=== PATIENT | male | born 1940 | race Hispanic/Latino ===

== ENCOUNTER 2018-10-17 02:44 | Inpatient (IN) | payer OTHER ==
[2018-10-17] VITALS (22 sets, daily range): BP systolic 90–159; BP diastolic 51–92
[~2018-10-17] VITALS: Ht 180.3 cm; Wt 92.6 kg
[2018-10-17] MEDS ORDERED: DIPHENHYDRAMINE HCL INJ 50 MG/ML VIAL ONE (02:51)
[2018-10-17] MEDS ORDERED: FAMOTIDINE 20 MG/2 ML VIAL IV ONE (02:51)
[2018-10-17] MEDS ORDERED: METHYLPREDNISOLONE SOD SUCC 125 MG/2ML VIAL ONE (02:51)
[2018-10-17] MEDS ORDERED: KETAMINE HCL INJ 50 MG/ML 10 ML VIAL ONE (03:04)
[2018-10-17] MEDS ORDERED: MIDAZOLAM HCL 2 MG/2 ML VIAL ONE (03:05)
[2018-10-17] MEDS ORDERED: KETAMINE HCL INJ 50 MG/ML 10 ML VIAL IV ONE (03:11)
[2018-10-17] MEDS ORDERED: SUCCINYLCHOLINE 200 MG/10 ML SYR IV STA ×2 (03:12→03:21)
[2018-10-17] MEDS ORDERED: ETOMIDATE 2 MG/ML 10 ML INJ IV STA ×2 (03:12→03:21)
[2018-10-17] MEDS: PROPOFOL IV EMULSION 10MG/ML 100 ML IV PRN ×11 (03:20→23:30)
[2018-10-17] MEDS ORDERED: MIDAZOLAM HCL 2 MG/2 ML VIAL IV STA (03:21)
[2018-10-17] MEDS ORDERED: SODIUM CHLORIDE 0.9% 1000ML 1,000 ML IV STA (03:22)
[2018-10-17] MEDS ORDERED: PROPOFOL IV EMULSION 10MG/ML 100 ML ONE (03:23)
[2018-10-17] MEDS ORDERED: AMPICILLIN SOD/SULBACTAM 3GM 100 ML IV SCH (03:30)
[2018-10-17] MEDS ORDERED: CEFEPIME 1GM/NS 0.9% 50 ML 50 ML IV SCH (03:30)
[2018-10-17] MEDS ORDERED: VANCOMYCIN 1GM/NS 250 ML 250 ML IV SCH (03:30)
[2018-10-17 03:54] LABS: BASOPHILS # (AUTO) 0.1 (0.0-0.1); BASOPHILS % 0.6 % (0.0-1.0); EOSINOPHILS # (AUTO) 0.3 (0.0-0.4); EOSINOPHILS % 3.1 % (0.0-6.0); HEMATOCRIT 35.9 % (38.2-49.6); HEMOGLOBIN 12.1 g/dL (14.0-18.0); LYMPHOCYTES # (AUTO) 1.6 (1.0-3.2); LYMPHOCYTES % 19.2 % (18.0-39.1); MEAN CORPUSCULAR HEMOGLOBIN 30.3 pg (28-32); MEAN CORPUSCULAR HGB CONC 33.7 g/dL (31-35); MONOCYTES # (AUTO) 0.4 (0.2-0.8); MONOCYTES % 4.6 % (4.4-11.3); NEUTROPHILS # (AUTO) 6.1 (2.1-6.9); NEUTROPHILS % 71.6 % (38.7-80.0); PLATELET COUNT 399 x10e3/uL (140-360); RED BLOOD COUNT 3.99 x10e6/uL (4.3-5.7); RED CELL DISTRIBUTION WIDTH 13.4 % (11.7-14.4)
[2018-10-17 04:05] LABS: ALANINE AMINOTRANSFERASE 39 IU/L (0-55); ALBUMIN 3.1 g/dL (3.5-5.0); ALBUMIN/GLOBULIN RATIO 0.7 (0.8-2.0); ALKALINE PHOSPHATASE 166 IU/L (40-150); ANION GAP 16.6 mmol/L (8-16); BLOOD UREA NITROGEN 16 mg/dL (7-26); BUN/CREATININE RATIO 13 (6-25); CALCIUM 9.1 mg/dL (8.4-10.2); CARBON DIOXIDE 20 mmol/L (22-29); CHLORIDE 104 mmol/L (98-107); CREATININE, SERUM 1.26 mg/dL (0.72-1.25); EST GLOMERULAR FILTRATION RATE 56 ML/MIN (60-); GLUCOSE 153 mg/dL (74-118); POTASSIUM 4.6 mmol/L (3.5-5.1); SODIUM 136 mmol/L (136-145)
[2018-10-17] MEDS ORDERED: PROPOFOL IV EMULSION 10 MG/ML 50 ML VIAL IV PRN (04:15)
[2018-10-17 04:19] LABS: ABG PCO2 42 mmHg (41-51); ABG PH 7.41 (7.31-7.41)
[2018-10-17 04:20] LABS: ABG HCO3 26 mmol/L (23-28); ABG PO2 423 mmHg (80-105)
--- NOTE | 2018-10-17 04:24 | Diagnostic Imaging Report ---
EXAMINATION: CHEST SINGLE (PORTABLE) INDICATION: ^ERMD ORDER ^[id number] ^[id number] ^Y COMPARISON: None FINDINGS: AP view TUBES and LINES: Status post intubation. The tip of endotracheal tube is approximately 3 cm above cuba. LUNGS: Low lung volumes. Central vascular congestion. PLEURA: No visible pneumothorax. Suspected small bilateral pleural effusions. HEART AND MEDIASTINUM: The cardiomediastinal silhouette is enlarged on this AP view. BONES AND SOFT TISSUES: No acute osseous lesion. Soft tissues are unremarkable. UPPER ABDOMEN: No free air under the diaphragm. IMPRESSION: Status post intubation with tip of the endotracheal tube approximately 3 cm above cuba. Limited by body habitus and low lung volumes. Enlarged cardiomediastinal silhouette and pulmonary vascular congestion, accentuated by low lung volumes. Suspected small bilateral pleural effusions. Signed by: Dr. Germán Cam MD on 10/17/2018 4:21 AM
[2018-10-17] MEDS ORDERED: SODIUM CHLORIDE 0.9% 50ML 50 ML ONE (04:26)
[2018-10-17] MEDS ORDERED: IOPAMIDOL 370 MG/ML 200 ML INFUS..BTL INJ ONE (04:26)
[2018-10-17] MEDS ORDERED: MACRODANTIN100 MG PO (04:43)
[2018-10-17] MEDS ORDERED: NORCO 10-325 T1 EACH PO (04:43)
[2018-10-17] MEDS ORDERED: ASPIR 8181 MG PO (04:43)
[2018-10-17] MEDS ORDERED: GLIMEPIRIDE2 MG PO (04:44)
[2018-10-17] MEDS ORDERED: AMLODIPINE-BEN1 EACH PO (04:44)
--- NOTE | 2018-10-17 05:46 | Diagnostic Imaging Report ---
EXAM: CT Chest WITH contrast 10/17/2018 4:00 AM INDICATION: ^?mass ^[id number] ^[id number] COMPARISON: Same day chest x-ray TECHNIQUE: Chest was scanned utilizing a multidetector helical scanner from the lung apex through the level of the adrenal glands without administration of IV contrast. Coronal and sagittal reformations were obtained. Routine protocol was performed. IV CONTRAST: 100 mL of Isovue-370 COMPLICATIONS: None RADIATION DOSE: Total DLP: 728.29 mGy*cm Estimated effective dose: (DLP x 0.014 x size factor) mSv CTDIvol has been reviewed. It is below the limits set by the Radiation Protocol Committee (RPC). FINDINGS: LINES/ TUBES: Endotracheal tube in place with tip terminating in the mid trachea. LUNGS AND AIRWAYS: Evaluation of the lungs are limited due to respiratory motion. Mild vascular congestion. Atelectasis of the most of the left lower lobe. Right lower lobe subsegmental atelectasis. Airways are normal. PLEURA: The pleural spaces are clear. HEART AND MEDIASTINUM: Subcentimeter right thyroid lobe hypodense nodule. No mediastinal, hilar or axillary lymphadenopathy. The heart is normal in size.. There is no pericardial effusion. Main pulmonary artery measures 3.3 cm, mildly dilated. UPPER ABDOMEN: Well-defined left hepatic lobe hypodensity with internal density greater than simple fluid. BONES: The visualized bony thorax is within normal limits. SOFT TISSUES: Partially imaged right neck base subcutaneous fat stranding/edema. IMPRESSION: Atelectasis of the most of the left lower lobe. Underlying mass cannot be excluded. Well-defined left hepatic lobe hypodensity with internal density greater than simple fluid, likely a complex cyst. This can be confirmed with nonurgent right upper quadrant ultrasound. Signed by: Dr. Germán Cam MD on 10/17/2018 5:43 AM
--- NOTE | 2018-10-17 05:48 | Diagnostic Imaging Report ---
History: Swollen tongue. Comparison studies: None Technique: Axial, coronal and sagittal images from the skull base to the thoracic inlet. Coronal and sagittal images reconstructed from the axial data. Dose modulation, iterative reconstruction, and/or weight based adjustment of the mA/kV was utilized to reduce the radiation dose to as low as reasonably achievable. Intravenous contrast: 100 cc of Isovue-370. Findings: Upper aerodigestive tract: Endotracheal tube in place with tip which terminates in the upper thoracic trachea, proximal to the cuba. Dental fillings and endotracheal tube limit evaluation of the oral tongue/cavity and upper aerodigestive tract. There are nonspecific secretions throughout the nasopharynx, oropharynx and supraglottic airway. There is diffuse nonspecific pharyngeal edema. No rim-enhancing fluid collection/abscess. No definite mass identified within the limits of this exam. Soft tissues: There are reactive changes with ill-defined fluid and fat stranding in the soft tissues adjacent to the right submandibular gland which is mildly enlarged and heterogeneous compatible with nonspecific sialoadenitis. No calcified sialolith identified. Reactive changes and small fluid extend inferiorly to the right submandibular gland to the right carotid space and lateral to the thyroid cartilage. Lymph nodes: A few scattered, nonnecrotic, nonenlarged bilateral suprahyoid jugular chain lymph nodes are nonspecific but may be reactive. Additional nonspecific peritracheal lymph nodes which measure up to 1.4 cm also nonspecific. Vessels: Carotid and vertebral arteries and bilateral internal jugular veins are patent. Mild atherosclerosis at the left carotid bulb without significant stenosis. Right external jugular vein IV cannula in place. Small foci of gas in the left lateral neck presumably related to previous IV access. Thyroid gland: Hypodense 9 mm nodule in the right thyroid lobe. The thyroid gland is otherwise homogeneous and normal in size. Parotid glands: Homogeneous, normal in size. Submandibular glands: Mildly enlarged heterogeneous right submandibular gland as above. Left submandibular gland is homogeneous and normal in size. Orbits: No abnormalities. Paranasal sinuses: Small fluid levels in the maxillary sinuses and right sphenoid sinus may be related to intubation. Temporal bones: No gross abnormalities. Skull base and facial bones: Intact. Included lung apices: Mild nonspecific scarring bilaterally. Cervical spine: Multilevel anterior marginal osteophytes indent the prevertebral soft tissues. Varying degrees of mild to moderate multilevel cervical disc degeneration. The C3, C4 and C5 vertebrae are partially fused. Disc osteophyte complexes from C3 to C7 indent the thecal sac and result in mild canal stenosis. Advanced multilevel facet arthrosis with fused facets at C3-C4 and at C4-C5. Multilevel uncovertebral and facet arthrosis result in multilevel foraminal stenosis (mild left at C2-C3, moderate right and mild left at C3-C4 and at C4-C5, severe right and moderate left at C5-C6 and moderate bilaterally at C6-C7 and at C7-T1. IMPRESSION: 1. Status post intubation with ET tube in adequate position. 2. Nonspecific pharyngeal edema. Pharyngeal secretions and small fluid in the paranasal sinuses presumably related to intubation. No definite mass identified. Repeat neck CT following extubation when clinically appropriate could further evaluate as warranted. 3. Nonspecific right submandibular sialoadenitis with reactive changes in the adjacent regional soft tissues. 4. No abscess or other acute abnormalities. Signed by: Dr. Erik Guerrero M.D. on 10/17/2018 5:45 AM
--- OUTSIDE RECORDS SUMMARY | 2018-10-17 05:57 | XMS REPORT | Clinical Summary ---
Author Author ÁLVARO [facility] Address Unknown Phone Unavailable Care Team Providers Care Wine Blender Name Role Phone Shaq Corado MD PCP Unavailable Allergies Comments Active Allergy Reactions Severity Noted Date Pravastatin Swelling 11/27/2016 Medications End Date Status Medication Sig Dispensed Refills Start Date Active glimepiride (AMARYL) 1 MG Take 1 mg by 0 tablet mouth 2 (two) times daily . Active amLODIPine-benazepril Take 1 0 (LOTREL 5-20) 5-20 mg per capsule by capsule mouth daily. 11/08/2018 Active aspirin 325 MG EC tablet Take 1 tablet 30 tablet 0 (325 mg 9 total) by mouth daily for 30 days. 11/07/2018 Active HYDROcodone-acetaminophen Take 1 tablet 120 tablet 0 (NORCO 10-325) 10-325 mg by mouth 9 per tablet every 6 (six) hours as needed for up to 30 days. Max Daily Amount: 4 tablets 10/02/2018 Discontinued amLODIPine (NORVASC) 5 MG Take 5 mg by 0 tablet mouth 2 (two) times daily. 10/02/2018 Discontinued ezetimibe (ZETIA) 10 mg Take 10 mg by 0 tablet mouth daily. 10/02/2018 Discontinued furosemide (LASIX) 20 MG Take 20 mg by 0 tablet mouth 2 (two) times daily . 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 Encounters Care Team Description Date Type Specialty Ale [place], EVANS Follow-up 10/09/2018 Telephone Anesthesiology Erik Esquivel MD MAKOPLASTY,KNEE 10/07/2018 Surgery Frederic Medina MD 10/07/2018 Anesthesia Event Erik Esquivel MD 10/07/2018 [facility] General Internal Medicine - Encounter 10/08/2018 10/07/2018 Travel Resource, [facility] Phone 10/02/2018 Hospital Pre-Admission Testing Encounter Wil Tena PA-C 10/01/2018 Orders Only after 10/16/2017 Social History Date Tobacco Use Types Packs/Day Years Used Never Smoker Smokeless Tobacco: Never Used Alcohol Use Drinks/Week oz/Week Comments Yes socially Sex Assigned at Date Recorded Not on file Industry Job Start Date Occupation Not on file Not on file Not on file Travel End Travel History Travel Start No recent travel history available. Last Filed Vital Signs Time Taken Vital Sign Reading 10/08/2018 11:36 AM CDT Blood Pressure 176/81 10/08/2018 11:36 AM CDT Pulse 98 10/08/2018 11:36 AM CDT Temperature 35.6 C (96 F) 10/08/2018 11:36 AM CDT Respiratory Rate 17 10/08/2018 11:36 AM CDT Oxygen Saturation 98% - Inhaled Oxygen - Concentration 10/07/2018 6:00 AM CDT Weight 92.6 kg (204 lb 2.3 oz) 10/07/2018 6:00 AM CDT Height 180.3 cm (5' 11") 10/07/2018 6:00 AM CDT Body Mass Index 28.47 Plan of Treatment Not on file Implants Device Identifier Shelf Expiration Date Model / Serial / Lot Implanted Type Area Manufactur er 08/13/2018 6194-1-001 / / [id number] Cement Bone Smplx Hv 6194-1-001 - Cement/Nicola Left: Knee DEANNA:ST [id number] ler/Adhesi WIL Implanted: Qty: 1 on 12/11/2016 by Erik Salvador MD 07/16/2026 5841-09-14 / / [id number] Left Medial/Right Lateral Fracture/F Left: Knee Implanted: Qty: 1 on 12/11/2016 by Erik Abreu MD 05/15/202045-1742-413-09 / [id number] Poly Fracture/F Left: Knee Jessy Implanted: Qty: 1 on 12/11/2016 by Erik Abreu MD 05/15/[id number] / / [id number] Plt Tib Hi-Flx Pc Sz-E Lm/Rl Joints Left: Knee JESSY:ZIM [id number] - [id number] OCTAVIO US Implanted: Qty: 1 on 12/11/2016 by Erik Esquivel MD [id number] 05/06/2023 5551-L-350 / / [id number] Patella Triath Asym [id number] - Joints Right: Knee DEANNA:ST [id number] WIL Implanted: Qty: 1 on 10/07/2018 by Erik Joseph MD [id number] 05/29/2023 5510-F-602 / / [id number] Comp Fem Cr Ameya No.6 R 5510-F-602 - Joints Right: Knee DEANNA:ST [id number] WIL Implanted: Qty: 1 on 10/07/2018 by Erik Joseph MD [id number] 06/01/2023 5520-B-600 / / [id number] Baseplt Mica Tib Ameya No.6 5520-B-600 Joints Right: Knee DEANNA:ST - [id number] WIL Implanted: Qty: 1 on 10/07/2018 by Erik Joseph MD [id number] 07/06/2023 5530-G-609 / / [id number] Insrt Tib Bearing 9mm Sz 6 Joints Right: Knee DEANNA:ST 5530-G-609 - [id number] WIL Implanted: Qty: 1 on 10/07/2018 by Erik Joseph MD Procedures Comments Procedure Name Priority Date/Time Associated Diagnosis TRANSFUSION SERVICE 10/08/2018 REPORT - SCAN 6:02 PM CDT POCT-GLUCOSE METER Routine 10/08/2018 1:08 PM CDT POCT-GLUCOSE METER Routine 10/08/2018 7:38 AM CDT HEMOGLOBIN AND HEMATOCRIT Routine 10/08/2018 4:24 AM CDT BASIC METABOLIC PANEL (7) Routine 10/08/2018 4:23 AM CDT POCT-GLUCOSE METER Routine 10/07/2018 10:59 PM CDT POCT-GLUCOSE METER Routine 10/07/2018 9:52 AM CDT TISSUE EXAM AP Routine 10/07/2018 8:25 AM CDT PROCEDURE W/ BRANDY ROBOT 10/07/2018 Primary osteoarthritis of 7:29 AM CDT right knee Special Needs (SPINAL EPIDURAL WITH ADDUCTOR CANAL BLOCK, BRANDY ROBOT)Dr. Esquivel psychopaedic nurse informed of change of order brandy in same room. 10/07 1535 MAKOPLASTY,KNEE 10/07/2018 Primary osteoarthritis of 7:29 AM CDT right knee Special Needs (SPINAL EPIDURAL WITH ADDUCTOR CANAL BLOCK, BRANDY ROBOT)Dr. Esquivel psychopaedic nurse informed of change of order brandy in same room. 10/07 1535 VA AN PERINEURAL CATH - Routine 10/07/2018 NO CHARGE 7:14 AM CDT ANESTHESIA SPINAL BLOCK Routine 10/07/2018 7:09 AM CDT TYPE AND SCREEN, Routine 10/07/2018 AUTOMATED 6:25 AM CDT HEMOGLOBIN Routine 10/07/2018 6:25 AM CDT PLATELET COUNT Routine 10/07/2018 6:25 AM CDT POCT-GLUCOSE METER Routine 10/07/2018 6:23 AM CDT after 10/16/2017 Results * TRANSFUSION SERVICE REPORT - SCAN (10/08/2018 6:02 PM CDT) Narrative Performed At * POC-Glucose meter (10/08/2018 1:08 PM CDT) Only the most recent of 5 results within the time period is included. POC-Glucose Meter 88Comment: TESTED AT [facility] 70 - 110 mg/dL [address] Specimen Blood Performing Organization Address City/[facility]/Zipcode Phone Number [address] [address] [facility] * Hemoglobin and hematocrit (10/08/2018 4:24 AM CDT) Hemoglobin 13.1 (L) 13.7 - 17.5 GM/DL [facility] Hematocrit 40.8 40.1 - 51.0 % [facility] Specimen Blood Performing Organization Address [facility] Phone Number [address] [address] [facility] * Basic Metabolic Panel (10/08/2018 4:23 AM CDT) Sodium 133 (L) 136 - 145 meq/L [facility] Potassium 5.3 (H)Comment: Specimen 3.5 - 5.1 meq/L [facility] slightly hemolyzed [facility] Chloride 106 98 - 107 meq/L [facility] CO2 18 (L) 22 - 29 meq/L [facility] BUN 20 7 - 21 mg/dL [facility] Creatinine 1.26 (H)Comment: Specimen 0.57 - 1.25 mg/dL [facility] slightly hemolyzed [facility] Glucose 91 70 - 105 mg/dL [facility] Calcium 8.7 8.4 - 10.2 mg/dL [facility] EGFR 67Comment: ESTIMATED GFR IS mL/min/1.73 sq m [facility] NOT ACCURATE CREATININE [facility] CLEARANCE IN PREDICTING GLOMERULAR FILTRATION RATE. ESTIMATED GFR IS NOT APPLICABLE FOR DIALYSIS PATIENTS. Specimen Blood Performing Organization Address City/[facility]/Zipcode Phone Number [address] [phone] [facility] * Tissue Exam (10/07/2018 8:25 AM CDT) Case Report Surgical Pathology [facility] Report [facility] Case: [id number] Authorizing Provider:Erik Esquivel,Collected: 10/07/2018 0825 Ordering Location: [facility] Received: 10/07/2018 0915 SERVICES Pathologist: Curt Anderson MD Specimen:Condyle,Right Knee DIAGNOSIS PART A RIGHT KNEE CONDYLE, [facility] ARTHROPLASTY: [facility] OSTEOARTHRITIC CHANGES IN BONE AND CARTILAGE. REACTIVE SYNOVIAL TISSUE. Signing Pathologist Direct Phone Line: [phone] CPT Code(s) 29209, 21679 [facility] CLINICAL HISTORY Primary osteoarthritis of [facility] right knee [facility] SPECIMEN SOURCE Right knee condyle [facility] GROSS DESCRIPTION The specimen is received [facility] without formalin labeled with [facility] patient information and labeled "right knee condyle" and consists of three fragments of cochran knee bone and soft tissue measuring 7.5 x 6 x 2 cm in aggregate. The bone fragments have distinct osteophyte formation with small area of eburnation. Section code: A1 and A2, bone submitted for decalcification; A3, soft tissue and bone submitted for decalcification. CG/pl MICROSCOPIC DESCRIPTION PERFORMED [facility] Specimen Tissue - Condyle,Right Knee Performing Organization Address City/State/Zipcode Phone Number [facility] [address] [place], [place] [phone] [facility] * ANESTHESIA PERIPHERAL BLOCK (10/07/2018 7:14 AM CDT) Narrative Performed At Frederic Medina MD 10/07/20187:15 AM Peripheral Block Patient location during procedure: pre-procedure Start time: 10/07/2018 7:10 AM End time: 10/07/2018 7:12 AM Procedure Indication: procedure for pain, at surgeon's request and post-op pain management Preanesthetic Checklist Completed: patient identified, pre-op evaluation, timeout performed, IV checked, risks and benefits discussed, monitors and equipment checked, anesthesia consent given, prep site dry prior to draping and maximum sterile barriers were used: cap, mask, sterile gown, sterile gloves, and large sterile sheet Staffing Anesthesiologist: Frederic Medina MD Performed: personally Prep Prep: chlorhexidine gluconate and isopropyl alcohol Procedures: sterile gloves, surgical mask, surgical hat, sterile technique and prep and sterile drape applied Peripheral Nerve Block Patient position: supine Patient monitoring: EKG, HR, BP and SpO2 Laterality: right Block type: adductor canal Injection technique: catheter ultrasound guided - in plane, prescan was completed prior to procedure and needle tip was visualized throughout the entire procedure ultrasound image saved (SAVED) Block Dose: ropivicaine and catheter Infiltration strength: 0.5 % Dose: 25 mL Needle Needle type: PAJUNK E CATH. Needle gauge: 18 G Needle length: 75mm. Needle Localization:US guided Catheter type: open end Catheter size: 21G. Hydrodissection? yesCatheter tunneled Dressing: Occlusive dressing applied in sterile fashion and Dermabond applied at the catheter insertion site Assessment Injection assessment: incremental injection and negative aspiration for heme Pain scale pre-procedure: 3 Pain scale post-procedure: 0 LOC: Sedated with meaningful contact supplemental oxygen used.no evidence of intravascular injection and no heart rate changeno paresthesia patient had no immediate complications and patient tolerated the procedure well Procedure Note Frederic Medina MD - 10/07/2018 7:14 AM CDT Peripheral Block Patient location during procedure: pre-procedure Start time: 10/07/2018 7:10 AM End time: 10/07/2018 7:12 AM Procedure Indication: procedure for pain, at surgeon's request and post-op pain management Preanesthetic Checklist Completed: patient identified, pre-op evaluation, timeout performed, IV checked, risks and benefits discussed, monitors and equipment checked, anesthesia consent given, prep site dry prior to draping and maximum sterile barriers were used: cap, mask, sterile gown, sterile gloves, and large sterile sheet Staffing Anesthesiologist: Frederic Medina MD Performed: personally Prep Prep: chlorhexidine gluconate and isopropyl alcohol Procedures: sterile gloves, surgical mask, surgical hat, sterile technique and prep and sterile drape applied Peripheral Nerve Block Patient position: supine Patient monitoring: EKG, HR, BP and SpO2 Laterality: right Block type: adductor canal Injection technique: catheter ultrasound guided - in plane, prescan was completed prior to procedure and needle tip was visualized throughout the entire procedure ultrasound image saved (SAVED) Block Dose: ropivicaine and catheter Infiltration strength: 0.5 % Dose: 25 mL Needle Needle type: LOKESHK Jemima FLOWERS. Needle gauge: 18 G Needle length: 75mm. Needle Localization: US guided Catheter type: open end Catheter size: 21G. Hydrodissection? yesCatheter tunneled Dressing: Occlusive dressing applied in sterile fashion and Dermabond applied at the catheter insertion site Assessment Injection assessment: incremental injection and negative aspiration for heme Pain scale pre-procedure: 3 Pain scale post-procedure: 0 LOC: Sedated with meaningful contact supplemental oxygen used.no evidence of intravascular injection and no heart rate changeno paresthesia patient had no immediate complications and patient tolerated the procedure well * ANESTHESIA SPINAL BLOCK (10/07/2018 7:09 AM CDT) Narrative Performed At Frederic Medina MD 10/07/20187:09 AM Spinal Block Patient location during procedure: pre-procedure Start time: 10/07/2018 7:06 AM End time: 10/07/2018 7:08 AM Procedure Indication: at surgeon's request, post-op pain management and primary anesthetic Staffing Anesthesiologist: Frederic Medina MD Performed: personally Preanesthetic Checklist Completed: patient identified, pre-op evaluation, timeout performed, IV checked, risks and benefits discussed, monitors and equipment checked, anesthesia consent given, prep site dry prior to draping and maximum sterile barriers were used: cap, mask, sterile gown, sterile gloves, and large sterile sheet Prep Prep: Betadine Procedures: sterile gloves, surgical mask, surgical hat, sterile technique and prep and sterile drape applied Spinal Block Patient position: sitting Patient monitoring: EKG, HR, BP and SpO2 Approach: midline Pictures are available Level:L3-4 Injection technique: single-shot landmark technique and landmark technique Needle Needle type: eliseo. Needle gauge: 25 G Needle Length: 9 cm Used introducer Assessment Sensory level: T10 Events: cerebrospinal fluid patient tolerated the procedure well and patient had no immediate complications Procedure Note Frederic Medina MD - 10/07/2018 7:09 AM CDT Spinal Block Patient location during procedure: pre-procedure Start time: 10/07/2018 7:06 AM End time: 10/07/2018 7:08 AM Procedure Indication: at surgeon's request, post-op pain management and primary anesthetic Staffing Anesthesiologist: Frederic Medina MD Performed: personally Preanesthetic Checklist Completed: patient identified, pre-op evaluation, timeout performed, IV checked, risks and benefits discussed, monitors and equipment checked, anesthesia consent given, prep site dry prior to draping and maximum sterile barriers were used: cap, mask, sterile gown, sterile gloves, and large sterile sheet Prep Prep: Betadine Procedures: sterile gloves, surgical mask, surgical hat, sterile technique and prep and sterile drape applied Spinal Block Patient position: sitting Patient monitoring: EKG, HR, BP and SpO2 Approach: midline Pictures are available Level: L3-4 Injection technique: single-shot landmark technique and landmark technique Needle Needle type: eliseo. Needle gauge: 25 G Needle Length: 9 cm Used introducer Assessment Sensory level: T10 Events: cerebrospinal fluid patient tolerated the procedure well and patient had no immediate complications * Type and screen, automated (10/07/2018 6:25 AM CDT) ABO/RH AUTOMATED (BEAKER) B POSITIVE [facility] Ab Scrn NEGATIVE [facility] Specimen Blood Performing Organization Address [facility] [place] [address] [phone] * Platelet count (10/07/2018 6:25 AM CDT) Platelets 332 150 - 450 K/CU MM [facility] Specimen Blood Performing Organization Address City/[facility] Phone Number [address] [address] [phone] [place] [address] * Hemoglobin (10/07/2018 6:25 AM CDT) Hemoglobin 14.8 13.7 - 17.5 GM/DL [facility] Specimen Blood Performing Organization Address [facility] Phone Number [address] [address] [phone] [place] [address] after 10/16/2017 Insurance Payer Benefit Subscriber ID Type Phone Address Plan / Group [employer] xxxxxxxxx Maps HMO ALL Contracted Advance Directives For more information, please contact: [address] [address] Date Inactivated Comments Code Status Date Activated 10/08/2018 8:15 PM Full Code 10/07/2018 5:47 AM This code status was determined by: Patient 12/11/2016 1:27 PM Full Code 12/11/2016 6:54 AM This code status was determined by: Patient
--- OUTSIDE RECORDS SUMMARY | 2018-10-17 05:57 | XMS REPORT ---
Author Author [facility] Address Unknown Phone Unavailable Care Team Providers Care [facility]ess[facility] Paraprofessional Name Role Phone Tez YOO Unavailable Unavailable DAVID KWONG Unavailable Unavailable Problems This patient has no known problems. Allergies, Adverse Reactions, Alerts This patient has no known allergies or adverse reactions. Medications This patient has no known medications. Results Test Description Test Time Test Comments Text Results Atomic Results Result Comments CT CHEST W 2018-10-17 05:32:00 [place] [address] Patient Name: TATI LEAL MR #: [id number] : 1940 Age/Sex: 78/M Req #: [id number] Adm Physician: Ordered by: NOELLE YOO MD Report #: [id number] Location: ER Room/Bed: Procedure: [id number] CT/CT CHEST W Exam Date: 10/17/18 Exam Time: 439 REPORT STATUS: Signed EXAM: CT Chest WITH contrast 10/17/2018 4:00 AM INDICATION: ?mass [id number] COMPARISON: Same day chest x-ray TECHNIQUE: Chest was scanned utilizing a multidetector helical scanner from the lung apex through the level of the adrenal glands without administration of IV contrast. Coronal and sagittal reformations were obtained. Routine protocol was performed. IV CONTRAST: 100 mL of Isovue-370 COMPLICATIONS: None RADIATION DOSE: Total DLP: 728.29 mGy*cm Estimated effective dose: (DLP x 0.014 x size factor) mSv CTDIvol has been reviewed. It is below the limits set by the Radiation Protocol Committee (RPC). FINDINGS: LINES/ TUBES: Endotracheal tube in place with tip terminating in the mid trachea. LUNGS AND AIRWAYS: Evaluation of the lungs are limited due to respiratory motion. Mild vascular congestion. Atelectasis of the most of the left lower lobe. Right lower lobe subsegmental atelectasis. Airways are normal. PLEURA: The pleural spaces are clear. HEART AND MEDIASTINUM: Subcentimeter right thyroid lobe hypodense nodule. No mediastinal, hilar or axillary lymphadenopathy. The heart is normal in size.. There is no pericardial effusion. Main pulmonary artery measures 3.3 cm, mildly dilated. UPPER ABDOMEN: Well-defined left hepatic lobe hypodensity with internal density greater than simple fluid. BONES: The visualized bony thorax is w ithin normal limits. SOFT TISSUES: Partially imaged right neck base subcutaneous fat stranding/edema. IMPRESSION: Atelectasis of the most of the left lower lobe. Underlying mass cannot be excluded. Well-defined left hepatic lobe hypodensity with internal density greater than simple fluid, likely a complex cyst. This can be confirmed with nonurgent right upper quadrant ultrasound. Signed by: Dr. Germán Singh MD on 10/17/2018 5:43 AM Dictated By: GERMÁN SINGH MD 2 Transcribed By: DENTON on 10/17/18542 COPY TO: NOELLE YOO MD CT SOFT TISSUE NECK W 2018-10-17 05:19:00 [place] [address] Patient Name: TATI LEAL MR #: [id number] : 1940 Age/Sex: 78/M Req #: [id number] Adm Physician: Ordered by: NOELLE YOO MD Report #: [id number] Location: ER Room/Bed: Procedure: [id number] CT/CT SOFT TISSUE NECK W Exam Date: 10/17/18 Exam Time: 0440 REPORT STATUS: Signed History: Swollen tongue. Comparison studies: None Technique: Axial, coronal and sagittal images from the skull base to the thoracic inlet. Coronal and sagittal images reconstructed from the axial data. Dose modulation, iterative reconstruction, and/or weight based adjustment of the mA/kV was utilized to reduce the radiation dose to as low as reasonably achievable. Intravenous contrast: 100 cc of Isovue-370. Findings: Upper aerodigestive tract: Endotracheal tube in place with tip which terminates in the upper thoracic trachea, proximal to the cuba. Dental fillings and endotracheal tube limit evaluation of the oral tongue/cavity and upper aerodigestive tract. There are nonspecific secretions throughout the nasopharynx, oropharynx and supraglottic airway. There is diffuse nonspecific pharyngeal edema. No rim-enhancing fluid collection/abscess. No definite mass identified within the limits of this exam. Soft tissues: There are reactive changes with ill-defined fluid and fat stranding in the soft tissues adjacent to the right submandibular gland which is mildly enlarged and heterogeneous compatible with nonspecific sialoadenitis. No calcified sialolith identified. Reactive changes and small fluid extend inferiorly to the right submandibular gland to the right carotid space and lateral to the thyroid cartilage. Lymph nodes: A few scattered, nonnecrotic, nonenlarged bilateral suprahyoid jugular chain lymph nodes are nonspecific but may be reactive. Additional nonspecific peritracheal lymph nodes which measure up to 1.4 cm also nonspecific. Vessels: Carotid and vertebral arteries and bilateral internal jugular veins are patent. Mild atherosclerosis at the left carotid bulb without significant stenosis. Right external jugular vein IV cannula in place. Small foci of gas in the left lateral neck presumably related to previous IV access. Thyroid gland: Hypodense 9 mm nodule in the right thyroid lobe. The thyroid gland is otherwise homogeneous and normal in s ize. Parotid glands: Homogeneous, normal in size. Submandibular glands: Mildly enlarged heterogeneous right submandibular gland as above. Left submandibular gland is homogeneous and normal in size. Orbits: No abnormalities. Paranasal sinuses: Small fluid levels in the maxillary sinuses and right sphenoid sinus may be related to intubation. Temporal bones: No gross abnormalities. Skull base and facial bones: Intact. Included lung apices: Mild nonspecific scarring bilaterally. Cervical spine: Multilevel anterior marginal osteophytes indent the prevertebral soft tissues. Varying degrees of mild to moderate multilevel cervical disc degeneration. The C3, C4 and C5 vertebrae are partially fused. Disc osteophyte complexes from C3 to C7 indent the thecal sac and result in mild canal stenosis. Advanced multilevel facet arthrosis with fused facets at C3-C4 and at C4-C5. Multilevel uncovertebral and facet arthrosis result in multilevel foraminal stenosis (mild left at C2-C3, moderate right and mild left at C3-C4 and at C4-C5, severe right and moderate left at C5-C6 and moderate bilaterally at C6-C7 and at C7-T1. IMPRESSION: 1. Status post intubation with ET tube in adequate position. 2. Nonspecific pharyngeal edema. Pharyngeal secretions and small fluid in the paranasal sinuses presumably related to intubation. No definite mass iden tified. Repeat neck CT following extubation when clinically appropriate could further evaluate as warranted. 3. Nonspecific right submandibular sialoadenitis with reactive changes in the adjacent regional soft tissues. 4. No abscess or other acute abnormalities. Signed by: Dr. Josefa Guerrero M.D. on 10/17/2018 5:45 AM Dictated By: JOSEFA GUERRERO MD Transcribed By: DENTON on 10/17/1845 COPY TO: NOELLE YOO MD CHEST SINGLE (PORTABLE) 2018-10-17 04:18:00 [place] [address] Patient Name: TATI LEAL MR #: [id number] : 1940 Age/Sex: 78/M Req #: [id number] Adm Physician: Ordered by: NOELLE YOO MD Report #: [id number] Location: ER Room/Bed: Procedure: [id number] DX/CHEST SINGLE (PORTABLE) Exam Date: 10/17/18 Exam Time: 324 REPORT STATUS: Signed EXAMINATION: CHEST SINGLE (PORTABLE) IND ICATION: ERMD ORDER [id number] Y COMPARISON: None FINDINGS: AP view TUBES and LINES: Status post intubation. The tip of endotracheal tube is approximately 3 cm above cuba. LUNGS: Low lung volumes. Central vascular congestion. PLEURA: No visible pneumothorax. Suspected small bilateral pleural effusions. HEART AND MEDIASTINUM: The cardiomediastinal silhouette is enlarged on this AP view. BONES AND SOFT TISSUES: No acute osseous lesion. Soft tissues are unremarkable. UPPER ABDOMEN: No free air under the diaphragm. IMPRESSION: Status post intubation with tip of the endotracheal tube approximately 3 cm above cuba. Limited by body habitus and low lung volumes. Enlarged cardiomediastinal silhouette and pulmonary vascular congestion, accentuated by low lung volumes. Suspected small bilateral pleural effusions. Signed by: Dr. Germán Singh MD on 10/17/2018 4:21 AM Dictated By: GERMÁN SINGH MD 0 Transcribed By: DENTON on 10/17/18420 COPY TO: NOELLE YOO MD TISSUE EXAM 2018-10-13 08:44:00 Surgical Pathology Report Case: [id number] Authorizing Provider: Josefa Kwong, Collected: 10/07/2018 0825 Ordering Location: [facility] Received: 10/07/2018 0915 SERVICES Pathologist: Curt Anderson MD Specimen: Condyle,Right Knee PART A RIGHT KNEE CONDYLE, ARTHROPLASTY:OSTEOARTHRITIC CHANGES IN BONE AND CARTILAGE.REACTIVE SYNOVIAL TISSUE. Signing Pathologist Direct Phone Line: [phone] signed by Curt Anderson MD on 10/13/2018 at 8:44 [id number], [id number] osteoarthritis of right kneeRight knee condyleThe specimen is received without formalin labeled with patient information and labeled "right knee condyle" and consists of three fragments of cochran knee bone and soft tissue measuring 7.5 x 6 x 2 cm in aggregate. The bone fragments have distinct osteophyte formation with small area of eburnation. Section code: A1 and A2, bone submitted for decalcification; A3, soft tissue and bone submitted for decalcification. CG/pl PERFORMED POCT-GLUCOSE METER 2018-10-08 13:13:00 POC-GLUCOSE METER (BEAKER) (test eslj=8756) 88 mg/dL 70-110 TESTED AT [facility] [address] [facility] [address] POCT-GLUCOSE [id number] 08:40:00* Test Item Value Reference Range Comments POC-GLUCOSE METER (BEAKER) (test eswa=1333) 100 mg/dL 70-110 TESTED AT [place] [id number] [facility] [address] BASIC METABOLIC [id number] 05:29:00* Test Item Value Reference Range Comments SODIUM (BEAKER) (test nbls=009) 133 meq/L 136-145 POTASSIUM (BEAKER) (test foiu=866) 5.3 meq/L 3.5-5.1 Specimen slightly hemolyzed CHLORIDE (BEAKER) (test sljl=401) 106 meq/L 98-107 CO2 (BEAKER) (test fkow=552) 18 meq/L 22-29 BLOOD UREA NITROGEN (BEAKER) (test ihrt=090) 20 mg/dL 7-21 CREATININE (BEAKER) (test ifby=219) 1.26 mg/dL 0.57-1.25 Specimen slightly hemolyzed GLUCOSE RANDOM (BEAKER) (test gvsg=223) 91 mg/dL 70-105 CALCIUM (BEAKER) (test ojiu=134) 8.7 mg/dL 8.4-10.2 EGFR (BEAKER) (test fdcu=3329) 67 mL/min/1.73 sq m ESTIMATED GFR IS NOT ACCURATE CREATININE CLEARANCE IN PREDICTING GLOMERULAR FILTRATION RATE. ESTIMATED GFR IS NOT APPLICABLE FOR DIALYSIS PATIENTS. HEMOGLOBIN AND [id number] 04:45:00* Test Item Value Reference Range Comments HEMOGLOBIN (BEAKER) (test kqwu=648) 13.1 GM/DL 13.7-17.5 HEMATOCRIT (BEAKER) (test tmud=747) 40.8 % 40.1-51.0 POCT-GLUCOSE [id number] 23:00:00* Test Item Value Reference Range Comments POC-GLUCOSE METER (BEAKER) (test iseq=3984) 136 mg/dL 70-110 TESTED AT [facility] [address] [facility] [address] POCT-GLUCOSE [id number] 09:56:00* Test Item Value Reference Range Comments POC-GLUCOSE METER (BEAKER) (test cpwl=1389) 140 mg/dL 70-110 TESTED AT [place] [id number] [facility] [address] [id number] 06:52:00* Test Item Value Reference Range Comments HEMOGLOBIN (BEAKER) (test zgdy=373) 14.8 GM/DL 13.7-17.5 PLATELET [id number] 06:52:00* Test Item Value Reference Range Comments PLATELET COUNT (BEAKER) (test xmji=559) 332 K/CU MM 150-450 POCT-GLUCOSE [id number] 06:30:00* Test Item Value Reference Range Comments POC-GLUCOSE METER (BEAKER) (test izyt=1647) 118 mg/dL 70-110 TESTED AT [place] [id number] [facility] [address] TISSUE [id number] 20:54:00Surgical Pathology Report Case: [id number] Authorizing Provider: Josefa Kwong, Collected: 12/11/2016 0911 Ordering Location: [facility] Received: 12/11/2016 1010 SERVICES Pathologist: Radha Kamara MD Specimen: Condyle,Left Knee A. KNEE, LEFT CONDYLE, ARTHROPLASTY: - DEGENERATIVE JOINT DISEASE [id number] osteoarthritis left knee Left knee condyle Received fresh labeled "condyle, left knee" are three irregular, howell-white to yellow-cochran portions of osseous tissue to include a portion of the tibial plateau and femoral condyles measuring 10.5 x 8.0 x 1.5 cm in aggregate. The articular surfaces are howell-white to yellow-cochran and display focal areas of eburnation with obliteration of the demarcation between cortical and cancellous bone in these areas on cross section. No soft tissue identified. Boathouse Keeper sections are submitted in cassettes A1-2 for decalcification. DB/ewPerformed.POCT-GLUCOSE [id number] 11:52:00* Test Item Value Reference Range Comments POC-GLUCOSE METER (BEAKER) (test lavh=2481) 100 mg/dL 70-110 TESTED AT [address] [address] POCT-GLUCOSE [id number] 09:05:00* Test Item Value Reference Range Comments POC-GLUCOSE METER (BEAKER) (test jviy=4051) 122 mg/dL 70-110 TESTED AT [address] [address] BASIC METABOLIC [id number] 04:59:00* Test Item Value Reference Range Comments SODIUM (BEAKER) (test pcap=300) 136 meq/L 136-145 POTASSIUM (BEAKER) (test ljpk=327) 4.8 meq/L 3.5-5.1 CHLORIDE (BEAKER) (test yvvz=043) 106 meq/L 98-107 CO2 (BEAKER) (test tnay=182) 21 meq/L 22-29 BLOOD UREA NITROGEN (BEAKER) (test ptex=083) 15 mg/dL 7-21 CREATININE (BEAKER) (test gdkr=573) 1.13 mg/dL 0.57-1.25 GLUCOSE RANDOM (BEAKER) (test txbt=622) 150 mg/dL 70-105 CALCIUM (BEAKER) (test rmur=681) 8.8 mg/dL 8.4-10.2 EGFR (BEAKER) (test qnqz=4660) 77 mL/min/1.73 sq m ESTIMATED GFR IS NOT ACCURATE CREATININE CLEARANCE IN PREDICTING GLOMERULAR FILTRATION RATE. ESTIMATED GFR IS NOT APPLICABLE FOR DIALYSIS PATIENTS. HEMOGLOBIN AND [id number] 04:46:00* Test Item Value Reference Range Comments HEMOGLOBIN (BEAKER) (test qiio=699) 13.4 GM/DL 13.0-16.8 HEMATOCRIT (BEAKER) (test wkls=389) 42.5 % 40.0-50.0 POCT-GLUCOSE [id number] 23:11:00* Test Item Value Reference Range Comments POC-GLUCOSE METER (BEAKER) (test mcxn=8389) 188 mg/dL 70-110 TESTED AT [address] [address] POCT-GLUCOSE [id number] 17:28:00* Test Item Value Reference Range Comments POC-GLUCOSE METER (BEAKER) (test lbtk=0046) 254 mg/dL 70-110 TESTED AT [address] [address] POCT-GLUCOSE [id number] 12:03:00* Test Item Value Reference Range Comments POC-GLUCOSE METER (BEAKER) (test mbed=7364) 181 mg/dL 70-110 TESTED AT [address] [address] POCT-GLUCOSE [id number] 07:18:00* Test Item Value Reference Range Comments POC-GLUCOSE METER (BEAKER) (test qaqk=2849) 160 mg/dL 70-110 TESTED AT [address] [address]
[2018-10-17 07:46] LABS: CREATINE KINASE 71 IU/L (30-200)
[2018-10-17] MEDS: LACTATED RINGER'S 1,000 ML IV SCH ×2 (11:06→20:49)
[2018-10-17] MEDS: INSULIN LISPRO 100 UNIT/1 ML 3ML VIAL SQ SCH ×3 (11:38→18:00)
[2018-10-17] MEDS: METHYLPREDNISOLONE SOD SUCC 125 MG/2ML VIAL IV SCH ×2 (14:00→22:00)
[2018-10-17] MEDS: DIPHENHYDRAMINE HCL INJ 50 MG/ML VIAL IV SCH ×2 (14:00→22:00)
[2018-10-17] MEDS: CLINDAMYCIN 600MG / 50ML 50 ML IV SCH ×2 (14:20→22:00)
[2018-10-17] MEDS ORDERED: FENTANYL CITRATE/PF 100MCG/2 ML INJ IV PRN (15:00)
[2018-10-17] MEDS: FAMOTIDINE 20 MG/2 ML VIAL IV SCH (16:48)
[2018-10-17] MEDS ORDERED: PNEUMOCOCCAL VACCINE POLYVALENT 23 MCG/0.5 ML VIAL IM SCH (19:49)
[2018-10-17] MEDS: ENOXAPARIN 30 MG/0.3 ML SYR SC SCH (20:49)
[2018-10-17] MEDS ORDERED: HEPARIN SOD (PORCINE) 5,000 UNIT/ML VIAL SC SCH ×2 (21:00)
--- NOTE | 2018-10-17 22:44 | Consultation ---
DATE OF CONSULTATION: 10/17/2018 Pulmonary Medicine consult. PRIMARY CARE PHYSICIAN: Shaq Corado MD. HISTORY OF PRESENT ILLNESS: Mr. Solares is a pleasant 78-year-old gentleman with shortness of breath. The patient was having increasing shortness of breath. Onset at 2:30 a.m. acutely. Associated with difficulty swallowing. The patient has an additional tongue swelling. Some submandibular swelling. As there is a pattern of worsening, the patient came to emergency room. The patient had assessment of the ER doctor of possible imminent airway obstruction. The patient had dentures removed. The patient had difficulty securing the airway and he had at least two attempts until airway was secured with the videoscope. He was even deemed difficult even with the videoscope. The patient had emergent CT, which demonstrated paratracheal lymph nodes up to 1.4 cm, right submandibular gland enlargement mild, right submandibular gland area swelling, diffuse nonspecific pharyngeal edema, thyroid being predominantly normal size, right upper lobe mild atelectasis, left lower lobe bronchiectasis on CT lungs portions. The patient was intubated and sent to the ICU and placed on ventilator. PAST MEDICAL HISTORY: Hypertension, diabetes, recent left total knee replacement. MEDICATIONS: Medication list reviewed per the chart record. Include benazepril and Norvasc combination. ALLERGIES: ALLERGIES TO PRAVASTATIN PREVIOUSLY NOTED. SOCIAL HISTORY: No smoking. No drinking. No drugs. The patient lives 80% of the time [place] and 20% of time in [facility]. FAMILY HISTORY: Noncontributory. REVIEW OF SYSTEMS: Cannot get reliably, as he is intubated. PHYSICAL EXAMINATION: VITAL SIGNS: Afebrile, vital signs noted per the chart record. GENERAL: No acute distress on sedation, propofol. HEENT: Normocephalic mostly, although there is some swelling mildly noted to the lip into submandibular right area. Atraumatic. NECK: Supple. Throat midline. LUNGS: Bilateral air entry, limited. CARDIOVASCULAR: S1, S2. No murmurs, rubs, or gallops. ABDOMEN: Soft, nontender. EXTREMITIES: No clubbing, no cyanosis, no edema. INTEGUMENT: No rash or purpura. LABORATORY DATA: 9 white count, 36 hematocrit, 399 platelets. 7.41/42/ . 4.6 potassium, 20 bicarbonate, 16 BUN, 1.3 creatinine. 166 alkaline phosphatase. Albumin is 3.1, globulin is 4.5. Radiography as stated above. IMPRESSION AND PLAN: 1. Upper airways obstruction, evolving. 2. 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 3. Associated mild sialadenitis suspected, rule out evolving infection. 4. Acute respiratory failure, intubated. 5. Diabetes. 6. Hypertension. Mr. Solares' was cautioned probably not to take any of these class of medicines again to include ARBs and SAYRA inhibitors as this is the 2nd occurrence she says of some medicine causing facial edema. ENT consult to be done for evaluation to see if any coexisting or other pathology suspected besides SAYRA inhibitor-induced swelling. For now, no intubation. Continue antibiotics, some steroids and some antihistamines. We will allow ENT doctors to assess they need to rule out other etiologies. Thank you very much for this consult, Dr. Judge and Dr. Corado. Please do not hesitate to contact me if I can help in any way. MD HOLLIE Torres/ASHLEY /[id number]
[2018-10-18] VITALS (27 sets, daily range): BP systolic 112–149; BP diastolic 50–81
[2018-10-18] MEDS: PROPOFOL IV EMULSION 10MG/ML 100 ML IV PRN ×9 (02:00→22:07)
[2018-10-18] MEDS: METHYLPREDNISOLONE SOD SUCC 125 MG/2ML VIAL IV SCH ×3 (05:33→21:42)
[2018-10-18] MEDS: CLINDAMYCIN 600MG / 50ML 50 ML IV SCH ×3 (05:33→21:42)
[2018-10-18] MEDS: DIPHENHYDRAMINE HCL INJ 50 MG/ML VIAL IV SCH ×3 (05:33→21:42)
[2018-10-18 05:51] LABS: BASOPHILS % 0.2 % (0.0-1.0); HEMATOCRIT 31.3 % (38.2-49.6); HEMOGLOBIN 10.3 g/dL (14.0-18.0); LYMPHOCYTES # (AUTO) 0.9 (1.0-3.2); LYMPHOCYTES % 13.2 % (18.0-39.1); MEAN CORPUSCULAR HEMOGLOBIN 29.9 pg (28-32); MEAN CORPUSCULAR HGB CONC 32.9 g/dL (31-35); MONOCYTES # (AUTO) 0.3 (0.2-0.8); MONOCYTES % 3.8 % (4.4-11.3); NEUTROPHILS # (AUTO) 5.4 (2.1-6.9); NEUTROPHILS % 81.9 % (38.7-80.0); PLATELET COUNT 359 x10e3/uL (140-360); RED BLOOD COUNT 3.44 x10e6/uL (4.3-5.7); RED CELL DISTRIBUTION WIDTH 13.8 % (11.7-14.4)
--- NOTE | 2018-10-18 06:19 | Diagnostic Imaging Report ---
EXAMINATION: CHEST SINGLE (PORTABLE) INDICATION: ^pneumonia ^[id number] ^0530 COMPARISON: Chest CT dated 10/17/2018 FINDINGS: AP view TUBES and LINES: Stable endotracheal tube. LUNGS: Lungs are well inflated. Left basilar/retrocardiac opacification. Mild central vascular congestion. PLEURA: No significant pleural effusion or pneumothorax. HEART AND MEDIASTINUM: The cardiac silhouette is borderline enlarged. BONES AND SOFT TISSUES: No acute osseous lesion. Soft tissues are unremarkable. UPPER ABDOMEN: No free air under the diaphragm. IMPRESSION: Central vascular congestion. Left basilar/retrocardiac opacification, probably atelectasis. Underlying pneumonia cannot be excluded in the appropriate clinical context. Signed by: Dr. Germán Cam MD on 10/18/2018 6:16 AM
[2018-10-18 06:23] LABS: ALBUMIN 2.6 g/dL (3.5-5.0); ALBUMIN/GLOBULIN RATIO 0.7 (0.8-2.0); ANION GAP 14.4 mmol/L (8-16); CALCIUM 8.7 mg/dL (8.4-10.2); CREATININE, SERUM 1.28 mg/dL (0.72-1.25); POTASSIUM 4.4 mmol/L (3.5-5.1)
[2018-10-18] MEDS: INSULIN LISPRO 100 UNIT/1 ML 3ML VIAL SQ SCH ×5 (06:27→23:58)
[2018-10-18] MEDS: LACTATED RINGER'S 1,000 ML IV SCH ×2 (06:30→18:15)
[2018-10-18] MEDS: ALBUTEROL/IPRATROPIUM 3 ML NEB NEB PRN (07:31)
[2018-10-18] MEDS: FAMOTIDINE 20 MG/2 ML VIAL IV SCH ×2 (09:17→17:00)
[2018-10-18] MEDS: ENOXAPARIN 30 MG/0.3 ML SYR SC SCH ×2 (09:17→21:01)
[2018-10-18] MEDS ORDERED: DEXMEDETOMIDINE HCL 200 MCG in SODIUM CHLORIDE 0.9% 50ML 48 ML IV PRN ×2 (12:00→22:15)
--- NOTE | 2018-10-18 15:31 | Progress Note ---
DATE: 10/18/2018 Pulmonary Medicine Progress Note SUBJECTIVE: Mr. Solares was seen and examined at bedside. He remains with some swelling. His tongue is not sitting inside his oral cavity and still protrudes outside. He remained intubated on ventilator. Chest x-ray showed interim development of infiltrate. Lactated Ringer's at [address]. REVIEW OF SYSTEMS: No headaches. No bleeding. OBJECTIVE: VITAL SIGNS: Afebrile, vital signs noted per the chart record. GENERAL: In no acute distress. Alert and calm. HEENT: Normocephalic, atraumatic. NECK: Supple. Throat midline. LUNGS: Bilateral air entry, mostly clear. CARDIOVASCULAR: S1, S2. No murmurs, rubs, or gallops. ABDOMEN: Soft and nontender. EXTREMITIES: No clubbing, no cyanosis. There is no edema. INTEGUMENT: No rash or purpura. LABORATORY DATA: A 4.4 potassium, 20 BUN, and 0.3 creatinine. A 7 white count, 31 hematocrit, and 359 platelets. IMPRESSION AND PLAN: 1. Acute respiratory failure, intubated. 2. Clinical aspiration pneumonia, gram-negative/polymicrobial. 3. SAYRA inhibitor related angioedema. 4. Diabetes. 5. Hypertension. The patient had slight awakening on the propofol, probably more than needed. Given fentanyl or Precedex with heart rate cautions. tube feeds another day. Follow up serial airway exams. Lactated Ringer's 100 per hour to continue. We will continue sliding scale insulin. Extubate when the airway is improved. In the meantime, he remained on antibiotics for this pneumonia required prior to hospitalization. MD HOLLIE Torres/MODL /[id number]
--- NOTE | 2018-10-18 16:42 | Consultation ---
DATE OF CONSULTATION: 10/18/2018 Hospital Consultation HISTORY OF PRESENT ILLNESS: I was kindly asked to see this 78-year-old man for evaluation of upper airway obstruction. The patient has a history of periodic lip and tongue swelling, which did not cause significant problems until the day of admission when he developed progressive swelling in his throat, tongue, and submandibular region. He was seen in the emergency department and felt to have an impending upper airway obstruction and was subsequently intubated. CT scan demonstrated right submandibular gland enlargement and swelling in the submandibular region as well as paratracheal lymph nodes up to 1.4 cm. Since admission, the patient initially had a slight increase in amount of swelling of his tongue and submandibular region. However, in the last 12 hours, the swelling has improved significantly. PAST MEDICAL HISTORY: Pertinent for hypertension and diabetes. PAST SURGICAL HISTORY: Pertinent for recent knee surgery. PHYSICAL EXAMINATION: He has a moderate nasal septal deviation to the left. There are no significant nasal mucosal abnormalities. Intraoral examination is limited due to the presence of the endotracheal tube. The tongue is enlarged, but remains within the oral cavity. There is no palpable cervical adenopathy. The right submandibular gland is normal to palpation. On fiberoptic laryngoscopy, he has significant edema of the supraglottic airway. Due to the amount of edema in the vocal cords cannot be directly assessed the endotracheal tube, however, there was space around the endotracheal tube. ASSESSMENT: 1. Upper airway obstruction secondary to angioedema, probably from the SAYRA inhibitor. 2. Right submandibular sialadenitis, which appears to be improving with current therapy. 3. Cervical adenopathy probably secondary to the submandibular sialadenitis. PLAN: Continuation with current medical therapy. MD GUICHO Murray/JERARDOL /[id number]
[2018-10-18] MEDS: DEXMEDETOMIDINE HCL 200 MCG in SODIUM CHLORIDE 0.9% 50ML 48 ML IV PRN (22:07)
[2018-10-19] VITALS (26 sets, daily range): BP systolic 140–176; BP diastolic 64–82
[2018-10-19] MEDS: PROPOFOL IV EMULSION 10MG/ML 100 ML IV PRN ×7 (01:15→21:25)
[2018-10-19 05:07] LABS: BASOPHILS % 0.1 % (0.0-1.0); HEMATOCRIT 33.8 % (38.2-49.6); HEMOGLOBIN 10.8 g/dL (14.0-18.0); LYMPHOCYTES # (AUTO) 0.9 (1.0-3.2); LYMPHOCYTES % 11.7 % (18.0-39.1); MEAN CORPUSCULAR HEMOGLOBIN 29.7 pg (28-32); MEAN CORPUSCULAR VOLUME 92.9 fL (81-99); MONOCYTES # (AUTO) 0.3 (0.2-0.8); MONOCYTES % 4.3 % (4.4-11.3); NEUTROPHILS # (AUTO) 6.2 (2.1-6.9); NEUTROPHILS % 83.2 % (38.7-80.0); PLATELET COUNT 378 x10e3/uL (140-360); RED BLOOD COUNT 3.64 x10e6/uL (4.3-5.7)
[2018-10-19 05:38] LABS: ANION GAP 11.6 mmol/L (8-16); BLOOD UREA NITROGEN 20 mg/dL (7-26); BUN/CREATININE RATIO 18 (6-25); CALCIUM 8.8 mg/dL (8.4-10.2); CARBON DIOXIDE 22 mmol/L (22-29); CHLORIDE 108 mmol/L (98-107); EST GLOMERULAR FILTRATION RATE > 60 ML/MIN (60-); GLUCOSE 167 mg/dL (74-118); POTASSIUM 4.6 mmol/L (3.5-5.1); SODIUM 137 mmol/L (136-145)
[2018-10-19] MEDS: DIPHENHYDRAMINE HCL INJ 50 MG/ML VIAL IV SCH ×3 (05:46→21:21)
[2018-10-19] MEDS: INSULIN LISPRO 100 UNIT/1 ML 3ML VIAL SQ SCH ×4 (05:47→23:45)
[2018-10-19] MEDS: CLINDAMYCIN 600MG / 50ML 50 ML IV SCH ×3 (05:47→21:45)
[2018-10-19] MEDS: METHYLPREDNISOLONE SOD SUCC 125 MG/2ML VIAL IV SCH ×3 (05:47→21:21)
--- NOTE | 2018-10-19 05:49 | Diagnostic Imaging Report ---
EXAMINATION: CHEST SINGLE (PORTABLE) INDICATION: ^intubated ^[id number] ^0505 COMPARISON: 10/18/2018 FINDINGS: AP view TUBES and LINES: Stable endotracheal tube. LUNGS: Limited by body habitus and low lung volumes. Patient's chin obscures extreme apices. Central vascular congestion. Left basilar opacification. PLEURA: No pneumothorax. HEART AND MEDIASTINUM: The cardiac silhouette is enlarged. BONES AND SOFT TISSUES: No acute osseous lesion. Soft tissues are unremarkable. UPPER ABDOMEN: No free air under the diaphragm. IMPRESSION: Limited as above. Pulmonary vascular congestion. Unchanged left basilar opacification, representing small effusion/atelectasis or pneumonia in the appropriate clinical context. Signed by: Dr. Germán Cam MD on 10/19/2018 5:46 AM
[2018-10-19] MEDS: DEXMEDETOMIDINE HCL 200 MCG in SODIUM CHLORIDE 0.9% 50ML 48 ML IV PRN ×2 (06:17→08:19)
[2018-10-19] MEDS: FAMOTIDINE 20 MG/2 ML VIAL IV SCH ×2 (08:18→17:40)
[2018-10-19] MEDS: ENOXAPARIN 30 MG/0.3 ML SYR SC SCH ×2 (08:18→21:21)
[2018-10-19] MEDS: LACTATED RINGER'S 1,000 ML IV SCH ×2 (08:18→21:42)
[2018-10-19] MEDS ORDERED: SUCCINYLCHOLINE 200 MG/10 ML SYR ONE (10:50)
[2018-10-19] MEDS ORDERED: ETOMIDATE 40 MG/ 20ML VIAL IV ONE (10:50)
--- NOTE | 2018-10-19 14:42 | Progress Note ---
DATE: 10/19/2018 Pulmonary Medicine Progress Note SUBJECTIVE: Mr. Solares is having decreased lip edema. Tongue still large, although unclear how much extra edema there is. Rojas is in place with good urine output. He remains on ventilator, intubated orally. Sputum culture with gram-negative rods, moderate amount so far. REVIEW OF SYSTEMS: Cannot get as he is intubated. OBJECTIVE: VITAL SIGNS: Afebrile, vital signs noted per the chart record. GENERAL: In no acute distress, alert and calm on sedation. HEENT: Normocephalic, atraumatic. NECK: Supple. Throat midline. LUNGS: Bilateral air entry, rare rhonchi. CARDIOVASCULAR: S1, S2. No murmurs, rubs, or gallops. ABDOMEN: Soft, nontender. EXTREMITIES: No clubbing. No cyanosis. There is no edema. INTEGUMENT: No rash or purpura. IMPRESSION: 1. Acute respiratory failure, intubated. 2. Angioedema. 3. Associated sialadenitis. 4. Chronic kidney disease. 5. Gram-negative arik pneumonia. PLAN: Continue current treatment at this time. Antibiotics. We will follow up sputum culture. Maintain wound check. His upper airway evaluation with Respiratory Therapy. We will consider if the patient can be extubated today. Otherwise, continue DVT prophylaxis considering recent knee surgery. We will follow along closely. Consider tube feeds if we can extubate. MD HOLLIE Torres/ASHLEY /[id number]
[2018-10-20] VITALS (23 sets, daily range): BP systolic 130–184; BP diastolic 62–90
[2018-10-20] MEDS: PROPOFOL IV EMULSION 10MG/ML 100 ML IV PRN ×2 (04:02→07:54)
[2018-10-20] MEDS: HYDRALAZINE HCL 20 MG/ML VIAL IV PRN (04:23)
[2018-10-20 04:58] LABS: HEMATOCRIT 34.8 % (38.2-49.6); HEMOGLOBIN 11.6 g/dL (14.0-18.0); LYMPHOCYTES # (AUTO) 1.1 (1.0-3.2); LYMPHOCYTES % 13.2 % (18.0-39.1); MEAN CORPUSCULAR HEMOGLOBIN 29.8 pg (28-32); MEAN CORPUSCULAR HGB CONC 33.3 g/dL (31-35); MEAN CORPUSCULAR VOLUME 89.5 fL (81-99); MONOCYTES # (AUTO) 0.4 (0.2-0.8); MONOCYTES % 4.9 % (4.4-11.3); NEUTROPHILS # (AUTO) 6.6 (2.1-6.9); NEUTROPHILS % 81.2 % (38.7-80.0); PLATELET COUNT 423 x10e3/uL (140-360); RED BLOOD COUNT 3.89 x10e6/uL (4.3-5.7)
[2018-10-20] MEDS: INSULIN LISPRO 100 UNIT/1 ML 3ML VIAL SQ SCH ×4 (05:16→23:49)
[2018-10-20] MEDS: DIPHENHYDRAMINE HCL INJ 50 MG/ML VIAL IV SCH ×3 (05:16→21:03)
[2018-10-20] MEDS: CLINDAMYCIN 600MG / 50ML 50 ML IV SCH (05:16)
[2018-10-20 05:31] LABS: ANION GAP 9.2 mmol/L (8-16); BLOOD UREA NITROGEN 23 mg/dL (7-26); BUN/CREATININE RATIO 23 (6-25); CALCIUM 8.7 mg/dL (8.4-10.2); CARBON DIOXIDE 24 mmol/L (22-29); CHLORIDE 107 mmol/L (98-107); CREATININE, SERUM 1.02 mg/dL (0.72-1.25); EST GLOMERULAR FILTRATION RATE > 60 ML/MIN (60-); GLUCOSE 169 mg/dL (74-118); MAGNESIUM 2.4 MG/DL (1.3-2.1); POTASSIUM 4.2 mmol/L (3.5-5.1); SODIUM 136 mmol/L (136-145)
[2018-10-20 05:52] LABS: THYROID STIMULATING HORMONE 0.383 uIU/mL (0.350-4.940)
[2018-10-20] MEDS ORDERED: METHYLPREDNISOLONE SOD SUCC 40 MG/ML VIAL 1ML IV SCH (06:00)
--- NOTE | 2018-10-20 07:03 | Diagnostic Imaging Report ---
Exam: Abdominal film Clinical History: NG tube Comparison: None. DISCUSSION: NG tube placement with the tip right of midline overlying the distal portion of the expected stomach. Nonobstructive bowel gas pattern. IMPRESSION: NG tube as above Signed by: Dr. Valentin Jaramillo M.D. on 10/20/2018 6:59 AM
[2018-10-20] MEDS: FAMOTIDINE 20 MG/2 ML VIAL IV SCH ×2 (08:11→17:20)
[2018-10-20] MEDS: ENOXAPARIN 30 MG/0.3 ML SYR SC SCH ×2 (08:11→20:29)
[2018-10-20] MEDS: AMLODIPINE BESYLATE 5 MG TAB PO SCH (08:11)
[2018-10-20] MEDS: DEXMEDETOMIDINE HCL 200 MCG in SODIUM CHLORIDE 0.9% 50ML 48 ML IV PRN (08:55)
[2018-10-20] MEDS: LACTATED RINGER'S 1,000 ML IV SCH (12:26)
[2018-10-20] MEDS: CEFTRIAXONE SOD 1 GM/NS 50 ML 50 ML IV SCH (12:26)
[2018-10-20] MEDS: LACTOBACILLUS ACIDOPHILUS CAPSULE NG SCH ×2 (12:26→17:20)
--- NOTE | 2018-10-20 16:11 | Progress Note ---
DATE: 10/20/2018 Pulmonary Medicine Progress Note SUBJECTIVE: Mr. Solares was seen and examined at bedside. The patient with 2.4 L in, 2.3 L out. Remains on ventilator. Good cuff leak on testing at least 25%. Later on, we gave him a trial of extubation, which I directly supervised given the increased airway risk. He was extubated and he seemed to have no stridor, although he was having some vocalizations, but did not seem to be stridor. Good air entry into the throat. REVIEW OF SYSTEMS: Cannot get as he is still not talking. OBJECTIVE: VITAL SIGNS: Afebrile, vital signs noted per the chart record. GENERAL: In no acute distress, alert and calm. HEENT: Normocephalic, atraumatic. Very small tongue edema. INTEGUMENT: No rash or purpura. LUNGS: Bilateral air entry, few rhonchi. CARDIOVASCULAR: S1, S2. No murmurs, rubs, or gallops. ABDOMEN: Soft, nontender. EXTREMITIES: No clubbing, no cyanosis, no edema. INTEGUMENT: No rash, no purpura. LABORATORY DATA: 4.2 potassium, 1.0 creatinine. 8 white count, 35 hematocrit, 423 platelets. IMPRESSION AND PLAN: 1. Acute respiratory failure. 2. Upper airways obstruction, SAYRA inhibitor related angioedema. 3. Possible distinct sialadenitis condition. 4. Hypertension. 5. Aspiration pneumonitis. At this time, we will extubate as stated. Follow up serial airway evaluations. Decrease steroids. Decrease the antihistamines. Continue deep vein thrombosis prophylaxis. We will follow along closely. MD HOLLIE Torres/JERARDOL /[id number]
--- NOTE | 2018-10-20 16:11 | Progress Note ---
DATE: 10/20/2018 ADDENDUM: This is an addendum to progress note with dictation ID #[id number]. I directly supervised the weaning and extubation trials given the increased airway risk. Greater than 30 minutes in direct care and coordination and supervision of procedures. MD HOLLIE Torres/ASHLEY /[id number]
--- NOTE | 2018-10-20 18:47 | Consultation ---
DATE OF CONSULTATION: 10/20/2018 Cardiac Consultation REASON FOR CONSULTATION: Bradycardia. CHIEF COMPLAINT: Angioedema, respiratory failure, intubated for airway protection. HISTORY OF PRESENT ILLNESS: Mr. Solares is a 78-year-old gentleman with past medical history of hypertension,type 2 diabetes, hypercholesteremia, also has a history of repeated angioedema type reactions with total of eight major episodes over the past 10 years. However, this is the first one where he had to be intubated. The patient was in his usual state of health up until Friday night where he noted progressively worsening submandibular and neck swelling that associated with the tongue swelling and what was thought might be due to medication use, specifically combination of benazepril and calcium channel fernie medication. The patient was intubated for airway protection and now, he is hospital day #3 on the vent on propofol and Precedex therapy. The swelling in his face and forearms has been slowly decreasing and remains sedated on the bed with heart rate currently in the 40s to 50s range, sinus bradycardia. History is provided largely by family as the patient is intubated at the present time. Prior to this, the patient has had no known rhythm or arrhythmia issues. He has had no syncope or near syncope. Family reports eight episodes of severe swelling in his cheek, face, lower jaw region, as well as tongue. After every episode, he had some medication change and all of this has been blamed on medications. Of note, the patient most recently had been recovering from right total knee replacement operation done two weeks ago and progressing well. He lives most of his time in [place] and comes intermittently to the [facility] for care, but family admits that he is rather active and otherwise "healthy." PAST MEDICAL HISTORY: 1. Hypertension, essential. 2. Type 2 diabetes. 3. Recurrent angioedema type spells. PAST SURGICAL HISTORY: 1. History of left total knee replacement surgery one year ago. 2. History of right total knee replacement 15 days ago. SOCIAL HISTORY: He is a lifelong nonsmoker. Denies any alcohol or illicit drug use. FAMILY HISTORY: Mother at 73 with complications of diabetes. Father at the age of 86 with a stroke. ALLERGIES: NO KNOWN DRUG ALLERGIES. HOME MEDICATIONS: List includes: 1. Norvasc/benazepril combination medication. 2. Aspirin 81 mg daily. 3. Glimepiride 1 mg b.i.d. 4. P.r.n. [place]. 5. Macrodantin 100 mg b.i.d. REVIEW OF SYSTEMS: Unable to be obtained secondary to intubated and clinical state. PHYSICAL EXAMINATION: VITAL SIGNS: Height of 71 inches, weight of 204 pounds, and BMI of 28.5. Temperature 98.0, pulse of 45, respiratory rate 14, blood pressure 141/66, and O2 saturation 99% on 40% FiO2 on the vent. GENERAL: This is intubated, sedated gentleman, who is currently not breathing with vent. HEENT: Eyes are slightly swollen and swollen area in the submandibular soft tissue region. There is an endotracheal tube in place. Pupils equally round and reactive to light. NECK: No elevation in jugular venous pulsation. There is a central line in place. CARDIOVASCULAR: Bradycardic with normal S1 and S2. Soft 1/6 systolic murmur at left lower sternal border. LUNGS: Largely clear to auscultation bilaterally with good air entry. ABDOMEN: Soft, nontender, and nondistended. Normoactive bowel sounds. No hepatosplenomegaly. BACK: No costovertebral angle tenderness. EXTREMITIES: Warm with 2+ bilateral radial pulses, 2+ pedal pulses. There is no edema. There is a right total knee replacement with dressing in place. Old left total knee replacement scar. NEUROLOGIC: He is sedated on the vent. Limited evaluation. LABS: White count 8.2, hemoglobin 11.6, hematocrit 34.8, and platelets of 423. Sodium 136, potassium 4.2, chloride 107, bicarb 24, BUN 23, creatinine 1.02, glucose of 169, calcium of 8.7, magnesium 2.4. TSH is 0.383. KUB shows NG tube in place with nonobstructive bowel gas pattern. IMAGING: Chest x-ray reveals maybe some slight left basilar atelectatic type changes. Chest CT shows left lobe atelectasis and a left hepatic lobe complex cyst. 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 EKG reveals sinus rhythm, normal axis, and no ST-T wave changes. DIAGNOSES: 1. Sinus bradycardia, likely secondary to medication use, propofol and Precedex therapy. 2. Angioedema, status post intubation for airway protection. 3. Hypertension, essential. 4. Type 2 diabetes. 5. Repeated episodes of angioedema. PLAN/RECOMMENDATIONS: 1. From a cardiovascular standpoint, we will evaluate his heart structurally with echocardiogram and likely will tolerate the spells with heart rates in the 40s to 50s. Structurally normal and currently is normotensive. 2. We will recommend to avoid all SAYRA and ARB therapy in addition, perhaps maybe avoid anti-platelet therapy with aspirin and/or NSAIDs. 3. Labs have been checked by Pulmonary Service and appreciate their help and input. He has placed labs to evaluate perhaps unusual hereditary angioedema causes. 4. Aggressive risk factor modification medical therapy. 5. Continue subcu Lovenox for DVT prophylaxis especially this gentleman is recently status post orthopedic surgery. 6. We will continue to monitor this patient with you. Thank you for this referral. MD CANDICE Jaramillo/ASHLEY /[id number]
[2018-10-21] VITALS (24 sets, daily range): BP systolic 137–191; BP diastolic 57–83
[2018-10-21] MEDS: INSULIN LISPRO 100 UNIT/1 ML 3ML VIAL SQ SCH ×4 (05:26→23:50)
[2018-10-21] MEDS: DIPHENHYDRAMINE HCL INJ 50 MG/ML VIAL IV SCH ×3 (05:26→21:45)
--- NOTE | 2018-10-21 06:27 | Diagnostic Imaging Report ---
Examination: Single AP view of the chest. COMPARISON: October 19, 2018 INDICATION: cough DISCUSSION: Lines/tubes: Enteric tube. Lungs: Improved aeration. No pneumonia or pulmonary edema. Pleura: No pleural effusion or pneumothorax. Heart and mediastinum: The heart and the mediastinum are unremarkable. Bones and soft tissues: No acute bony abnormalities. IMPRESSION: 1. Improved aeration of the lungs. Signed by: Dr. Valentin Jaramillo M.D. on 10/21/2018 6:23 AM
[2018-10-21] MEDS: ALBUTEROL/IPRATROPIUM 3 ML NEB NEB PRN (07:15)
[2018-10-21] MEDS ORDERED: PREDNISONE 20 MG TAB PO SCH (09:00)
[2018-10-21] MEDS: AMLODIPINE BESYLATE 5 MG TAB PO SCH ×2 (09:25→17:30)
[2018-10-21] MEDS: FAMOTIDINE 20 MG/2 ML VIAL IV SCH ×2 (09:25→17:30)
[2018-10-21] MEDS: ENOXAPARIN 30 MG/0.3 ML SYR SC SCH ×2 (09:25→21:45)
[2018-10-21] MEDS: LACTOBACILLUS ACIDOPHILUS CAPSULE NG SCH ×2 (09:25→17:30)
[2018-10-21] MEDS: CEFTRIAXONE SOD 1 GM/NS 50 ML 50 ML IV SCH (11:06)
[2018-10-21] MEDS: LACTATED RINGER'S 1,000 ML IV SCH ×2 (11:09→23:51)
[2018-10-21] MEDS: HYDROCODONE/APAP 10MG-325MG TAB PO PRN (13:30)
--- NOTE | 2018-10-21 15:11 | Progress Note ---
DATE: 10/21/2018 Pulmonary Medicine Progress Note SUBJECTIVE: Mr. Solares was seen and examined at bedside. He continues to have steady progress. He has some dysphonia. The patient was having difficulties having secretions. Therefore, he was still n.p.o. The patient's airway is still without any stridor. REVIEW OF SYSTEMS: No headaches. No bleeding. OBJECTIVE: VITAL SIGNS: Afebrile. Vital signs noted and reviewed per the chart record. GENERAL: In no acute distress. Alert and calm. HEENT: Normocephalic, atraumatic. NECK: Supple. Throat midline. LUNGS: Bilateral air entry, few rhonchi. CARDIOVASCULAR: S1, S2. No murmurs, rubs, or gallops. ABDOMEN: Soft, nontender. EXTREMITIES: No clubbing. No cyanosis. There is no edema. INTEGUMENT: No rash or purpura. IMPRESSION: 1. Angioedema, SAYRA inhibitor related. Improved. 2. Acute respiratory failure due to airway obstruction, now better. 3. Hypertension. 4. Dysphonia/clinical dysphagia. PLAN: At this time, we have ordered Speech Therapy evaluation. Continue to mobilize him. Work with Physical Therapy. We will consider removing Rojas catheter tomorrow if he is better. Continue weaning down steroids and Benadryl. We will follow along closely. MD HOLLIE Torres/ASHLEY /[id number]
[2018-10-21] MEDS: HYDRALAZINE HCL 20 MG/ML VIAL IV PRN ×2 (18:17→22:05)
[2018-10-22] VITALS (27 sets, daily range): BP systolic 114–194; BP diastolic 51–118
[2018-10-22] MEDS ORDERED: TRAZODONE HCL 50 MG TAB PO ONE (00:15)
[2018-10-22 05:49] LABS: BASOPHILS % 0.2 % (0.0-1.0); EOSINOPHILS % 0.2 % (0.0-6.0); HEMATOCRIT 37.9 % (38.2-49.6); HEMOGLOBIN 11.9 g/dL (14.0-18.0); LYMPHOCYTES # (AUTO) 1.7 (1.0-3.2); LYMPHOCYTES % 12.8 % (18.0-39.1); MEAN CORPUSCULAR HEMOGLOBIN 29.5 pg (28-32); MEAN CORPUSCULAR HGB CONC 31.4 g/dL (31-35); MEAN CORPUSCULAR VOLUME 93.8 fL (81-99); MONOCYTES # (AUTO) 0.8 (0.2-0.8); MONOCYTES % 5.7 % (4.4-11.3); NEUTROPHILS # (AUTO) 10.5 (2.1-6.9); PLATELET COUNT 420 x10e3/uL (140-360); RED BLOOD COUNT 4.04 x10e6/uL (4.3-5.7); RED CELL DISTRIBUTION WIDTH 14.5 % (11.7-14.4)
[2018-10-22] MEDS: INSULIN LISPRO 100 UNIT/1 ML 3ML VIAL SQ SCH ×3 (06:00→18:00)
[2018-10-22 06:09] LABS: CALCIUM 8.5 mg/dL (8.4-10.2); CREATININE, SERUM 1.26 mg/dL (0.72-1.25)
[2018-10-22] MEDS: DIPHENHYDRAMINE HCL INJ 50 MG/ML VIAL IV SCH (06:15)
[2018-10-22] MEDS: HYDRALAZINE HCL 20 MG/ML VIAL IV PRN ×2 (06:15→20:14)
[2018-10-22] MEDS: HYDROCODONE/APAP 10MG-325MG TAB PO PRN (07:56)
[2018-10-22] MEDS: AMLODIPINE BESYLATE 5 MG TAB PO SCH ×2 (08:11→16:19)
[2018-10-22] MEDS: LACTOBACILLUS ACIDOPHILUS CAPSULE NG SCH ×2 (08:11→16:19)
[2018-10-22] MEDS: FAMOTIDINE 20 MG/2 ML VIAL IV SCH ×2 (08:11→16:19)
[2018-10-22] MEDS: ENOXAPARIN 30 MG/0.3 ML SYR SC SCH ×2 (08:12→21:34)
[2018-10-22] MEDS ORDERED: PREDNISONE 20 MG TAB PO SCH (09:00)
[2018-10-22] MEDS: CEFTRIAXONE SOD 1 GM/NS 50 ML 50 ML IV SCH (10:30)
--- NOTE | 2018-10-22 13:29 | Diagnostic Imaging Report ---
Examination: Single AP view of the chest. COMPARISON: Chest radiograph 10/21/2018 INDICATION: Leukocytosis. DISCUSSION: Lines/tubes: Enteric tube courses into the stomach, the tip is not seen. Overlying EKG leads. Lungs: Moderate lung volumes. Mild patchy left basilar opacity, slightly improved from the prior study. No new consolidation. No evidence of pulmonary edema. Pleura: No pleural effusion or pneumothorax. Heart and mediastinum: The cardiomediastinal silhouette is unremarkable. Bones and soft tissues: No acute osseous abnormality. IMPRESSION: Improving patchy left basilar opacity, likely atelectasis. No evidence of lobar pneumonia. Signed by: Dr. Arnaldo Tinsley MD on 10/22/2018 1:25 PM
--- NOTE | 2018-10-22 13:31 | Diagnostic Imaging Report ---
Exam: KUB - 1 view. Clinical History: Constipation. Comparison: None. Findings: The upper abdomen is partially excluded from the [id number]. Enteric tube terminates in the expected location of the distal stomach. Nonobstructive bowel gas pattern. No significant stool burden. Degenerative changes of the lower lumbar spine. No acute osseous abnormality. Impression: No radiographic evidence of significant stool. Signed by: Dr. Arnaldo Tinsley MD on 10/22/2018 1:27 PM
[2018-10-22] MEDS: METRONIDAZOLE 500MG/NS 100ML 100 ML IV SCH ×2 (14:57→21:34)
[2018-10-22] MEDS: BISACODYL 10 MG SUPP PR ONE ×2 (14:57→16:20)
[2018-10-22] MEDS: METOPROLOL TARTRATE 25 MG TAB PO SCH ×2 (14:58→21:35)
[2018-10-22] MEDS ORDERED: BISACODYL 10 MG SUPP PR ONE (15:00)
--- NOTE | 2018-10-22 16:35 | Progress Note ---
DATE: 10/22/2018 Internal Medicine Progress Note SUBJECTIVE: Mr. Solares was seen and examined at bedside. He continues with slow progress. The patient has difficulty maintaining and handling his oral secretions still. NG tube in place. Tolerating feeds. The patient is talking and . REVIEW OF SYSTEMS: No bleeding, no headaches. OBJECTIVE: VITAL SIGNS: Afebrile, vital signs noted per the chart record. GENERAL: In no acute distress. Alert and calm. HEENT: Normocephalic, atraumatic. NECK: Supple. Throat midline. LUNGS: Bilateral air entry, few rhonchi. CARDIOVASCULAR: S1, S2. No murmurs, rubs, or gallops. ABDOMEN: Soft, nontender. EXTREMITIES: No clubbing no cyanosis. There is no edema. INTEGUMENT: No rash. No purpura. LABORATORY DATA: BUN 28, 1.3 creatinine. 13 white count, 38 hematocrit, 420 platelets. IMPRESSION AND PLAN: 1. Gram-negative pneumonia. 2. Angioedema. 3. Sialoadenitis. 4. Acute respiratory failure, intubated/extubated now. Continue weaning down steroids. The steroids will end soon. Benadryl also wean down significantly. Continue NG tube feeds. Speech therapy has been consulted given the delay in resolution. Continue to avoid SAYRA inhibitors. Try to mobilize him more. MD HOLLIE Torres/ASHLEY /[id number]
[2018-10-23] VITALS (19 sets, daily range): BP systolic 140–186; BP diastolic 51–91
[2018-10-23] MEDS: IPRATROPIUM BROMIDE 0.02% 2.5 ML NEB NEB SCH ×4 (01:35→18:56)
[2018-10-23 05:05] LABS: BASOPHILS % 0.2 % (0.0-1.0); EOSINOPHILS # (AUTO) 0.2 (0.0-0.4); EOSINOPHILS % 1.3 % (0.0-6.0); HEMOGLOBIN 11.2 g/dL (14.0-18.0); LYMPHOCYTES # (AUTO) 1.9 (1.0-3.2); LYMPHOCYTES % 14.6 % (18.0-39.1); MEAN CORPUSCULAR HEMOGLOBIN 29.6 pg (28-32); MEAN CORPUSCULAR VOLUME 92.3 fL (81-99); MONOCYTES # (AUTO) 0.9 (0.2-0.8); MONOCYTES % 6.6 % (4.4-11.3); PLATELET COUNT 408 x10e3/uL (140-360); RED BLOOD COUNT 3.79 x10e6/uL (4.3-5.7); RED CELL DISTRIBUTION WIDTH 14.7 % (11.7-14.4)
[2018-10-23 05:23] LABS: ANION GAP 10.8 mmol/L (8-16); BLOOD UREA NITROGEN 23 mg/dL (7-26); BUN/CREATININE RATIO 22 (6-25); CARBON DIOXIDE 26 mmol/L (22-29); CHLORIDE 111 mmol/L (98-107); CREATININE, SERUM 1.05 mg/dL (0.72-1.25); EST GLOMERULAR FILTRATION RATE > 60 ML/MIN (60-); GLUCOSE 145 mg/dL (74-118); POTASSIUM 3.8 mmol/L (3.5-5.1); SODIUM 144 mmol/L (136-145)
--- NOTE | 2018-10-23 05:41 | Diagnostic Imaging Report ---
Exam: Abdominal film Clinical History: NG tube placement Comparison: October 22, 2018 DISCUSSION: Enteric tube present with the distal aspect curled overlying the stomach. Nonobstructive bowel gas pattern. Multiple overlying wires. IMPRESSION: Enteric tube with the distal aspect curled overlying the stomach Signed by: Dr. Valentin Jaramillo M.D. on 10/23/2018 5:38 AM
[2018-10-23] MEDS: INSULIN LISPRO 100 UNIT/1 ML 3ML VIAL SQ SCH ×5 (05:51→22:21)
[2018-10-23] MEDS: METRONIDAZOLE 500MG/NS 100ML 100 ML IV SCH (05:59)
[2018-10-23] MEDS: HYDRALAZINE HCL 20 MG/ML VIAL IV PRN ×2 (06:54→22:24)
--- NOTE | 2018-10-23 07:09 | Diagnostic Imaging Report ---
Exam: Abdominal film Clinical History: Adjustment of nasogastric tube Comparison: Earlier 10/23/2018 DISCUSSION: See impression: IMPRESSION: Nasogastric tube remains coiled over the gastric bubble, with the tip projecting over the fundus. Nonobstructive bowel gas pattern. Signed by: Dr. Erik Argueta M.D. on 10/23/2018 7:05 AM
[2018-10-23] MEDS: METOPROLOL TARTRATE 25 MG TAB PO SCH ×3 (07:37→20:33)
[2018-10-23] MEDS: PREDNISONE 10 MG TAB PO SCH (08:47)
[2018-10-23] MEDS: FAMOTIDINE 20 MG/2 ML VIAL IV SCH (08:47)
[2018-10-23] MEDS: LACTOBACILLUS ACIDOPHILUS CAPSULE NG SCH ×2 (08:47→17:00)
[2018-10-23] MEDS: ENOXAPARIN 30 MG/0.3 ML SYR SC SCH ×2 (08:47→20:33)
[2018-10-23] MEDS: AMLODIPINE BESYLATE 5 MG TAB PO SCH ×2 (08:47→17:00)
[2018-10-23] MEDS: LACTATED RINGER'S 1,000 ML IV SCH (08:53)
[2018-10-23] MEDS: CEFTRIAXONE SOD 1 GM/NS 50 ML 50 ML IV SCH (10:06)
[2018-10-23] MEDS ORDERED: IBUPROFEN 400 MG TAB PO ONE (12:30)
[2018-10-23] MEDS ORDERED: FENTANYL CITRATE/PF 100MCG/2 ML INJ IV PRN (12:30)
[2018-10-23] MEDS: ALBUTEROL/IPRATROPIUM 3 ML NEB NEB PRN (13:48)
[2018-10-23] MEDS: HYDRALAZINE HCL 25 MG TAB PO SCH ×2 (14:11→20:33)
--- NOTE | 2018-10-23 17:13 | Progress Note ---
DATE: 10/23/2018 Pulmonary Medicine Progress Note SUBJECTIVE: Mr. Solares was seen and examined at bedside. He continues to have steady progress. The patient passes swallow evaluation. He continues with tube in his nose for feeding. The patient is talking and oriented. REVIEW OF SYSTEMS: No headaches, no bleeding. OBJECTIVE: VITAL SIGNS: Afebrile, vital signs noted per the chart record. GENERAL: No acute distress. Alert and calm, sitting up. HEENT: Normocephalic, atraumatic. NECK: Supple. Throat midline. LUNGS: Bilateral air entry, few rhonchi. CARDIOVASCULAR: S1, S2. No murmurs, rubs, or gallops. ABDOMEN: Soft, nontender. EXTREMITIES: No clubbing. No cyanosis. There is no edema. INTEGUMENT: No rash or purpura. LABORATORY DATA: 1.06 creatinine, 3.8 potassium, and 13 white count. IMPRESSION AND PLAN: 1. Acute respiratory failure, intubated/now extubated. 2. Angioedema, SAYRA inhibitor related. 3. Sialoadenitis associated. 4. Pneumonia, gram-negative type. Continue DVT prophylaxis. Prednisone is weaning down. He is currently off antihistamines, it is fine. The patient will continue to mobilize. Feeding tube stay in place until he is eating better. Can start some p.o. diet today. MD HOLLIE Torres/ASHLEY /[id number]
[2018-10-24] VITALS: BP 159/74
[2018-10-24] MEDS: IPRATROPIUM BROMIDE 0.02% 2.5 ML NEB NEB SCH ×2 (01:00→13:35)
[2018-10-24 04:00] VITALS: BP 178/79
[2018-10-24] MEDS: HYDRALAZINE HCL 20 MG/ML VIAL IV PRN (04:23)
[2018-10-24] MEDS: METOPROLOL TARTRATE 25 MG TAB PO SCH (04:59)
[2018-10-24 05:08] LABS: BASOPHILS % 0.3 % (0.0-1.0); EOSINOPHILS # (AUTO) 0.5 (0.0-0.4); EOSINOPHILS % 3.8 % (0.0-6.0); HEMATOCRIT 36.4 % (38.2-49.6); HEMOGLOBIN 11.4 g/dL (14.0-18.0); LYMPHOCYTES # (AUTO) 2.3 (1.0-3.2); LYMPHOCYTES % 19.4 % (18.0-39.1); MEAN CORPUSCULAR HEMOGLOBIN 29.2 pg (28-32); MEAN CORPUSCULAR HGB CONC 31.3 g/dL (31-35); MEAN CORPUSCULAR VOLUME 93.1 fL (81-99); MONOCYTES # (AUTO) 0.9 (0.2-0.8); MONOCYTES % 7.4 % (4.4-11.3); NEUTROPHILS # (AUTO) 8.1 (2.1-6.9); NEUTROPHILS % 67.4 % (38.7-80.0); PLATELET COUNT 439 x10e3/uL (140-360); RED BLOOD COUNT 3.91 x10e6/uL (4.3-5.7); RED CELL DISTRIBUTION WIDTH 14.6 % (11.7-14.4)
[2018-10-24 05:23] LABS: ANION GAP 11.8 mmol/L (8-16); BLOOD UREA NITROGEN 21 mg/dL (7-26); BUN/CREATININE RATIO 22 (6-25); CARBON DIOXIDE 25 mmol/L (22-29); CHLORIDE 108 mmol/L (98-107); CREATININE, SERUM 0.97 mg/dL (0.72-1.25); EST GLOMERULAR FILTRATION RATE > 60 ML/MIN (60-); GLUCOSE 126 mg/dL (74-118); POTASSIUM 3.8 mmol/L (3.5-5.1); SODIUM 141 mmol/L (136-145)
[2018-10-24] MEDS: INSULIN LISPRO 100 UNIT/1 ML 3ML VIAL SQ SCH ×2 (05:31→11:38)
[2018-10-24] MEDS: ALBUTEROL/IPRATROPIUM 3 ML NEB NEB PRN (07:30)
[2018-10-24 07:35] VITALS: BP 144/67
[2018-10-24 07:55] VITALS: BP 144/67
[2018-10-24] MEDS: HYDRALAZINE HCL 25 MG TAB PO SCH (08:44)
[2018-10-24] MEDS: AMLODIPINE BESYLATE 5 MG TAB PO SCH (08:44)
[2018-10-24] MEDS: ENOXAPARIN 30 MG/0.3 ML SYR SC SCH (08:44)
[2018-10-24] MEDS: LACTOBACILLUS ACIDOPHILUS CAPSULE NG SCH (08:44)
[2018-10-24] MEDS: PREDNISONE 10 MG TAB PO SCH (08:44)
[2018-10-24] MEDS ORDERED: SODIUM CHLORIDE 0.9% 250ML 250 ML ONE (09:02)
[2018-10-24] MEDS: CEFTRIAXONE SOD 1 GM/NS 50 ML 50 ML IV SCH (10:30)
[2018-10-24 11:55] VITALS: BP 181/81
[2018-10-24] MEDS ORDERED: IBUPROFEN 600 MG TAB PO ONE (12:00)
[2018-10-24] MEDS ORDERED: METOPROLOL TARTRATE 50 MG TAB PO ONE (12:00)
--- NOTE | 2018-10-24 16:43 | Progress Note ---
DATE: 10/24/2018 Pulmonary Medicine Progress Note SUBJECTIVE: Mr. Solares was seen and examined at bedside. He is eating well. He has improved speech today. He is walking around. REVIEW OF SYSTEMS: No headaches, no bleeding. OBJECTIVE: VITAL SIGNS: Afebrile, vital signs reviewed per the chart record. GENERAL: In no acute distress. Alert and calm. HEENT: Normocephalic, atraumatic. NECK: Supple. Throat midline. LUNGS: Bilateral air entry, few rhonchi. CARDIOVASCULAR: S1, S2. No murmurs, rubs, or gallops. ABDOMEN: Soft, nontender. EXTREMITIES: No clubbing. No cyanosis. There is only trace edema. INTEGUMENT: No rash or purpura. LABORATORY DATA: BUN is 21, creatinine 0.97, potassium 3.8. IMPRESSION AND PLAN: 1. Acute respiratory failure, intubated and extubated. 2. Angioedema, SAYRA inhibitor related. 3. Postextubation dysphonia and dysphagia, resolving. 4. Hypertension. The patient's high blood pressure being controlled and if it gets to reasonable level, the patient will be discharged today. Stay off SAYRA inhibitors. Continue to mobilize. Continue oral diet now. NG tube has been out. MD HOLLIE Torres/ASHLEY /[id number]
--- NOTE | 2018-10-24 19:08 | Discharge Summary ---
PRIMARY CARE DOCTOR: Shaq Corado M.D. FINAL DIAGNOSIS: Acute respiratory failure due to angioedema. SECONDARY DIAGNOSES: 1. Right elbow bursitis, getting better. 2. Klebsiella pneumonia, treated with IV Rocephin. 3. Recent right total knee replacement. 4. Uncontrolled hypertension, better. 5. Diabetes. CONSULTANTS: 1. Dr. Orlando, Cardiology. 2. Dr. Rose, production bow maker. 3. Dr. Dunn, ENT. PROCEDURES/STUDIES PERFORMED: 1. Intubation and extubation. 2. Chest CT. 3. Neck CT. HISTORY: Per H and P. HOSPITAL COURSE: The patient was intubated. The patient was put on steroids, antihistamine and slowly his tongue swelling and angioedema got better. The patient was extubated without any problem. It took a day or two before he was able to swallow. Currently, the patient is eating without any problem. The patient did have Klebsiella pneumonia that was present on admission. The patient was treated with IV Rocephin. The patient's steroid was tapered down. He also has mild acute kidney injury and this improved with IV fluids as well. The patient was on the vent. The patient has significant sinus bradycardia, therefore Cardiology was consulted. Echocardiogram was fairly benign. This was thought to be due to sedation. Once he was extubated, his heart rate is normal now. The patient's angioedema is likely due to SAYRA inhibitor. There is a suspicion that this might be hereditary angioedema. I have updated his primary care doctor about this hospitalization and also consider checking his C1 esterase inhibitor level. The patient received Lovenox for DVT prophylaxis. His bursitis is improving with ibuprofen. His creatinine is normal. The patient will be going home on Norvasc, hydralazine, and metoprolol for blood pressure control. He will follow up with his primary care doctor in 1 week. I have discussed with Dr. Rose and Dr. Orlando prior to discharge. The patient was seen and examined today. It took 33 minutes total to discharge this patient. CONDITION ON DISCHARGE: Improved. DISCHARGE MEDICATIONS: Please see medication reconciliation form. Yiching MD SHADE Mccoy/ASHLEY /[id number] cc: [facility]
== END 2018-10-24 14:57 | disposition home health service (06) | DRG 208 ==
LOC: ER 02:44 → ERHOLD 05:54 → ICU 06:24 → MED/SURG2 10-23 15:09
PROVIDERS: ADMIT Internal Medicine; ATTEND Internal Medicine
PROC: 0BH18EZ Insertion of Endotracheal Airway into Trachea, Via Natural or Artificial Opening Endoscopic (ICD-10-PCS; principal; 2018-10-17)
PROC: 5A1945Z Respiratory Ventilation, 24-96 Consecutive Hours (ICD-10-PCS; 2018-10-17)
PROC: 0CJS8ZZ Inspection of Larynx, Via Natural or Artificial Opening Endoscopic (ICD-10-PCS; 2018-10-17)
PROC: 0DH67UZ Insertion of Feeding Device into Stomach, Via Natural or Artificial Opening (ICD-10-PCS; 2018-10-20)
PROC: 3E0G76Z Introduction of Nutritional Substance into Upper GI, Via Natural or Artificial Opening (ICD-10-PCS; 2018-10-20)
DX: J96.02 Acute respiratory failure with hypercapnia (principal); J69.0 Pneumonitis due to inhalation of food and vomit; J15.0 Pneumonia due to Klebsiella pneumoniae; N17.9 Acute kidney failure, unspecified; E87.2 Acidosis; I47.1 Supraventricular tachycardia; T78.3XXA Angioneurotic edema, initial encounter; N18.3 Chronic kidney disease, stage 3 (moderate); K11.21 Acute sialoadenitis; T46.4X5A Adverse effect of angiotensin-converting-enzyme inhibitors, initial encounter; Y92.009 Unspecified place in unspecified non-institutional (private) residence as the place of occurrence of the external cause; M70.31 Other bursitis of elbow, right elbow; E11.9 Type 2 diabetes mellitus without complications; R00.1 Bradycardia, unspecified; T42.75XA Adverse effect of unspecified antiepileptic and sedative-hypnotic drugs, initial encounter; R59.0 Localized enlarged lymph nodes; R49.0 Dysphonia; I12.9 Hypertensive chronic kidney disease with stage 1 through stage 4 chronic kidney disease, or unspecified chronic kidney disease; R13.10 Dysphagia, unspecified; Z78.1 Physical restraint status; R53.81 Other malaise; K59.00 Constipation, unspecified; Z79.84 Long term (current) use of oral hypoglycemic drugs; Z79.82 Long term (current) use of aspirin
CPT/HCPCS: 31500; 36415; 36600; 70491; 71045; 71260; 74018; 80048; 80053; 82550; 82553; 82805; 82948; 83605; 83735; 84443; 84484; 85025; 85651; 85730; 86021; 86039; 86140; 86160; 86162; 86225; 87070; 87186; 87205; 93306; 94002; 94003; 94640; 97139; 99284; J0295; J0360; J0696; J1200; J1644; J1650; J2250; J2920; J2930; J3370; J7030; J7050; J7121; J7512; Q9967